=== PATIENT | male | born 1975 | race Two or more races ===

== ENCOUNTER 2018-10-19 17:45 | Emergency (ER) | payer OTHER ==
--- NOTE | 2018-10-19 18:30 | EKG REPORT ---
SEVERITY:- BORDERLINE ECG - SINUS RHYTHM BORDERLINE LEFT AXIS DEVIATION EARLY PRECORDIAL TRANSITION, RVH? : Confirmed by: Jon Dean MD 19-Oct-2018 18:29:30
[2018-10-19] MEDS ORDERED: ASPIRIN 81 MG TABLET, CHEWABLE PO ONE (19:56)
[2018-10-19] MEDS ORDERED: LIDOCAINE 5% (700 MG) TRANSDERMAL ADH..PATCH TP ONE (19:57)
--- NOTE | 2018-10-19 19:59 | ER Document Report ---
ED Medical Screen (RME) - General Chief Complaint: Chest Pain Stated Complaint: CHEST PAIN Time Seen by Provider: 10/19/18 19:52 TRAVEL OUTSIDE OF THE [place] IN LAST 30 DAYS: No - Related Data Allergies/Adverse Reactions: No Known Allergies Allergy (Verified 01/23/15 10:12) Past Medical History Renal/ Medical History: Denies: Hx Peritoneal Dialysis - Immunizations Hx Diphtheria, Pertussis, Tetanus Vaccination: Yes Physical Exam - Vital signs Vitals: Temp Pulse Resp BP Pulse Ox 98.5 F 85 18 145/93 H 100 10/19/18 17:53 10/19/18 17:53 10/19/18 17:53 10/19/18 17:53 10/19/18 17:53 Course - Re-evaluation Re-evalutation: 10/19/18 19:58 Here is a 43-year-old man who presents for pain along the left chest wall which she is noticed over the last several months but is worsened over the last 3 days. There is tenderness to palpation in the posterior left chest. We will initiate workup.I have seen and performed a rapid medical screening examination on this patient. This patient will require further evaluation and disposition determination by a secondary provider. - Vital Signs Vital signs: Temp Pulse Resp BP Pulse Ox 98.5 F 85 18 145/93 H 100 10/19/18 17:53 10/19/18 17:53 10/19/18 17:53 10/19/18 17:53 10/19/18 17:53
--- NOTE | 2018-10-19 20:25 | RADIOLOGY REPORT (SQ) ---
EXAM DESCRIPTION: CHEST 2 VIEWS COMPLETED DATE/TIME: 10/19/2018 8:16 pm REASON FOR STUDY: chest pain COMPARISON: None. EXAM PARAMETERS: NUMBER OF VIEWS: two views TECHNIQUE: Digital Frontal and Lateral radiographic views of the chest acquired. RADIATION DOSE: NA LIMITATIONS: none FINDINGS: LUNGS AND PLEURA: No opacities, masses or pneumothorax. No pleural effusion. MEDIASTINUM AND HILAR STRUCTURES: No masses or contour abnormalities. HEART AND VASCULAR STRUCTURES: Heart normal size. No evidence for failure. BONES: No acute findings. HARDWARE: None in the chest. OTHER: No other significant finding. IMPRESSION: NO ACUTE RADIOGRAPHIC FINDING IN THE CHEST. TECHNICAL DOCUMENTATION: JOB ID: [id number] [employer]- All Rights Reserved Reading location - IP/workstation name: [email or web address]
[2018-10-19 21:03] LABS: ABSOLUTE BASOPHILS # (AUTO) 0.1 10^3/uL (0.0-0.2); ABSOLUTE EOSINOPHILS # (AUTO) 0.1 10^3/uL (0.0-0.6); ABSOLUTE LYMPHOCYTES (AUTO) 2.7 10^3/uL (0.5-4.7); ABSOLUTE MONOCYTES (AUTO) 0.7 10^3/uL (0.1-1.4); ABSOLUTE NEUT (AUTO) 8.9 10^3/uL (1.7-8.2); BASOPHILS % (AUTO) 0.5 % (0-2); EOSINOPHILS % (AUTO) 1.1 % (0-6); HEMATOCRIT 43.5 % (37.9-51.0); HEMOGLOBIN 14.8 g/dL (13.5-17.0); LYMPHOCYTES % (AUTO) 21.7 % (13-45); MEAN CORPUSCULAR HEMOGLOBIN 29.8 pg (27.0-33.4); MEAN CORPUSCULAR HGB CONC 33.9 g/dL (32.0-36.0); MEAN CORPUSCULAR VOLUME 88 fl (80-97); MONOCYTES % (AUTO) 5.4 % (3-13); PLATELET COUNT 277 10^3/uL (150-450); RED BLOOD COUNT 4.96 10^6/uL (4.35-5.55); RED CELL DISTRIBUTION WIDTH 14.2 % (11.5-14.0); SEGMENTED NEUTROPHILS % (AUTO) 71.3 % (42-78); TOTAL CELLS COUNTED % (AUTO) 100 %; WHITE BLOOD COUNT 12.5 10^3/uL (4.0-10.5)
[2018-10-19 21:20] LABS: ALANINE AMINOTRANSFERASE 37 U/L (21-72); ALBUMIN 4.5 g/dL (3.5-5.0); ALKALINE PHOSPHATASE 89 U/L (38-126); ANION GAP 10 (5-19); ASPARTATE AMINO TRANSFERASE 40 U/L (17-59); BILIRUBIN,DIRECT 0.3 mg/dL (0.0-0.4); BILIRUBIN,TOTAL 0.8 mg/dL (0.2-1.3); BLOOD UREA NITROGEN 11 mg/dL (7-20); CALCIUM 9.8 mg/dL (8.4-10.2); CARBON DIOXIDE 31 mmol/L (22-30); CHLORIDE 101 mmol/L (98-107); CREATINE KINASE 162 U/L (55-170); GLUCOSE 108 mg/dL (75-110); POTASSIUM 3.7 mmol/L (3.6-5.0); SODIUM 142.3 mmol/L (137-145); TOTAL PROTEIN 8.5 g/dL (6.3-8.2)
[2018-10-19 21:32] LABS: CREATINE KINASE MB 0.67 ng/mL (<4.55)
[2018-10-19 21:36] LABS: TROPONIN I < 0.012 ng/mL
[2018-10-19] MEDS ORDERED: DEXAMETHASONE SOD PHOS INJ 10 MG/1 ML VIAL IV ONE (22:32)
[2018-10-19 22:39] VITALS: BP 146/89
--- NOTE | 2018-10-19 22:43 | ER Document Report ---
ED General - General Chief Complaint: Chest Pain Stated Complaint: CHEST PAIN Time Seen by Provider: 10/19/18 19:52 Notes: Patient is a 43-year-old male that comes to the emergency department for chief complaint of pain in his left chest that goes around to his left side over the mid to lower ribs, he states pain is been present for about 2 weeks but has been bothering him more for the past 2 days. Pain is worse with deep breaths and movement. He denies injury, shortness of breath, vomiting, dizziness, passing out, fever. He denies history of the same. He denies smoking, recreational drugs, drinks minimal alcohol. He denies abdominal pain or symptoms with eating. TRAVEL OUTSIDE OF THE [place] IN LAST 30 DAYS: No - Related Data Allergies/Adverse Reactions: No Known Allergies Allergy (Verified 01/23/15 10:12) Past Medical History - General Information source: Patient - Social History Smoking Status: Never Smoker Frequency of alcohol use: Occasional Drug Abuse: None Lives with: Family Family History: Reviewed & Not Pertinent Patient has suicidal ideation: No Patient has homicidal ideation: No - Medical History Medical History: Negative Renal/ Medical History: Denies: Hx Peritoneal Dialysis Surgical Hx: Negative - Immunizations Immunizations up to date: Yes Hx Diphtheria, Pertussis, Tetanus Vaccination: Yes Review of Systems - Review of Systems Constitutional: No symptoms reported EENT: No symptoms reported Cardiovascular: See HPI Respiratory: See HPI Gastrointestinal: No symptoms reported Genitourinary: No symptoms reported Male Genitourinary: No symptoms reported Musculoskeletal: See HPI Skin: No symptoms reported Hematologic/Lymphatic: No symptoms reported Neurological/Psychological: No symptoms reported Physical Exam - Vital signs Vitals: Temp Pulse Resp BP Pulse Ox 98.5 F 85 18 145/93 H 100 10/19/18 17:53 10/19/18 17:53 10/19/18 17:53 10/19/18 17:53 10/19/18 17:53 - Notes Notes: GENERAL: Alert, interacts well. No acute distress. HEAD: Normocephalic, atraumatic. EYES: Pupils equal, round, and reactive to light. Extraocular movements intact. ENT: Oral mucosa moist, tongue midline. Oropharynx unremarkable. Airway patent. Nares patent, no nasal septal hematoma, TM's intact. NECK: Full range of motion. Supple. Trachea midline. LUNGS: Clear to auscultation bilaterally, no wheezes, rales, or rhonchi. No respiratory distress. Tenderness over the left mid ribs mainly over towards the lateral and almost posterior aspect. No ecchymosis, erythema, crepitus, or other concerning findings noted. HEART: Regular rate and rhythm. No murmur ABDOMEN: Soft, non-tender. Non-distended. Bowel sounds present in all 4 quadrants. GENITOURINARY: Deferred EXTREMITIES: Moves all 4 extremities spontaneously. No edema, normal radial and dorsalis pedis pulses bilaterally. No cyanosis. BACK: no cervical, thoracic, lumbar midline tenderness. No saddle anesthesia, normal distal neurovascular exam. NEUROLOGICAL: Alert and oriented x3. Normal speech. [cranial nerves II through XII grossly intact]. PSYCH: Normal affect, normal mood. SKIN: Warm, dry, normal turgor. No rashes or lesions noted. Course - Re-evaluation Re-evalutation: EKG sinus rhythm with no T wave inversions were in consecutive leads. Borderline left axis deviation. Normal heart size on chest x-ray, unremarkable chest x-ray. CBC, CMP, troponin unremarkable despite patient symptoms going on for some time. He has point tenderness over the left ribs mainly over the side and almost towards the back. No CVA tenderness. Pain is worse with deep breaths and range of motion. Appears to be musculoskeletal. Patient is improved with the lidocaine patch. Provided with dexamethasone to the IV. Discussed treatment, workup, expectations, follow-up, and return precautions with patient in detail. Patient states satisfaction and agreement. Stable at time of discharge. - Vital Signs Vital signs: Temp Pulse Resp BP Pulse Ox 98.5 F 85 16 146/89 H 97 10/19/18 17:53 10/19/18 17:53 10/19/18 22:04 10/19/18 22:03 10/19/18 22:04 - Laboratory Result Diagrams: 10/19/18 20:12 10/19/18 20:12 Laboratory results interpreted by me: 10/19/18 10/19/18 20:12 20:12 WBC 12.5 H RDW 14.2 H Absolute Neutrophils 8.9 H Carbon Dioxide 31 H Total Protein 8.5 H Discharge - Discharge Clinical Impression: Chest wall pain, Side pain Condition: Stable Disposition: HOME, SELF-CARE Additional Instructions: Your workup today does not show any concerning abnormalities. Your symptoms and evaluation are most consistent with costochondritis (pain and inflammation of the chest wall). You have been treated for this, you can take Naprosyn anti- inflammatory, you can apply heat over the area of pain, this should eventually resolve with time. Follow-up with primary care. Return if you worsen including difficulty breathing, severe pain, fever 100.4 or greater, passing out, or any other concerning symptoms. Prescriptions: Naproxen 500 mg PO BID PRN #14 tablet PRN Reason: Forms: Return to Work
== END 2018-10-19 22:30 | disposition home or self-care (01) ==
LOC: ER 17:45
DX: R07.89 Other chest pain (principal)
CPT/HCPCS: 93005; 99285; 96374; 36415; 82553; 82550; 85025; 80053; 84484; 71046; 93010; J1100

== ENCOUNTER 2018-12-12 19:40 | Emergency (ER) | payer OTHER ==
[2018-12-12 19:48] VITALS: BP 152/102
[2018-12-12] MEDS ORDERED: PREDNISONE 20 MG TABLET PO ONE (20:58)
--- NOTE | 2018-12-12 21:50 | ER Document Report ---
HPI - HPI Patient complains to provider of: rash Time Seen by Provider: 12/12/18 20:11 Pain Level: Denies Context: Patient presents to the emergency department for systemic rash that started on his hands and wrists approximately 1 week ago that progressed all the way up his arms onto his torso and back 4 days ago. Patient states that the rash does itch. Patient denies fevers, chills. Patient states that he did recently change laundry soaps. Patient states that he has recently started hiking and biking in the outdoors. Patient denies any other symptoms. - CONSTITUTIONAL Constitutional: DENIES: Fever, Chills Past Medical History - Social History Smoking Status: Unknown if Ever Smoked Family History: Reviewed & Not Pertinent Patient has suicidal ideation: No Patient has homicidal ideation: No Renal/ Medical History: Denies: Hx Peritoneal Dialysis - Immunizations Immunizations up to date: Yes Hx Diphtheria, Pertussis, Tetanus Vaccination: Yes Vertical Provider Document - CONSTITUTIONAL Agree With Documented VS: Yes - INFECTION CONTROL TRAVEL OUTSIDE OF THE [place] IN LAST 30 DAYS: No - HEENT HEENT: Atraumatic, Normocephalic - NECK Neck: Normal Inspection - BACK Back: Normal Inspection - NEURO Level of Consciousness: Awake, Alert, Appropriate Motor/Sensory: No Motor Deficit - DERM Integumentary: Warm, Dry, Rash - Systemic macular rash on the torso, circumferential around the arms and hands. No weeping, erythema, or central russell aring noted. Course - Re-evaluation Re-evalutation: 12/12/18 21:53 Pleasant 43-year-old male presents with a rash. Rash is macular and plaque with no surrounding erythema, central clearing, not raised, no evidence of discharge coming from the rash. Unclear what the etiology is but patient did recently changed body wash/laundry soap and has started spending more time outdoors. Patient states the rash itches. Plan is to give him prednisone 40 mg 1 time now with a burst dose of prednisone 40 mg daily for 5 days and follow-up to dermatology. Patient is stable for discharge. - Vital Signs Vital signs: Temp Pulse Resp BP Pulse Ox 98.4 F 91 16 152/102 H 97 12/12/18 19:46 12/12/18 19:46 12/12/18 19:46 12/12/18 19:46 12/12/18 19:46 Discharge - Discharge Clinical Impression: Rash and nonspecific skin eruption Condition: Good Disposition: HOME, SELF-CARE Additional Instructions: You were seen in the emergency department this evening for a rash. It is unclear what the cause of it is and it could be related to your change in the body wash or potentially from something in the environment. Nonetheless, we are putting you on a short dose of steroids with the expectation that you will follow-up with a primary care doctor and/or highway painter. If the rash becomes more severe, you have difficulty breathing or your throat feels like it is closing up, or you have any type of symptoms of anaphylaxis which is a life- threatening condition please immediately return to the emergency department. Referrals: [facility] [Provider Group] - Follow up as needed KARYN SHAIKH DO [ACTIVE STAFF] - Follow up as needed
== END 2018-12-12 21:05 | disposition home or self-care (01) ==
LOC: ER 19:40
DX: R21 Rash and other nonspecific skin eruption (principal); L29.8 Other pruritus
CPT/HCPCS: 99282; J7512

== ENCOUNTER 2020-06-22 20:06 | Emergency (ER) | payer SELFPAY ==
[2020-06-22] MEDS ORDERED: DEXAMETHASONE SOD PHOSPHATE INJ 4 MG/1 ML VIAL IM ONE (20:54)
[2020-06-22] MEDS ORDERED: KETOROLAC TROMETHAMINE 60 MG/2 ML SDV IM ONE (20:54)
[2020-06-22] MEDS ORDERED: OXYCODONE HCL SR 10 MG TABLET PO ONE (20:54)
--- NOTE | 2020-06-22 21:52 | RADIOLOGY REPORT (SQ) ---
5 VIEWS OF LUMBAR SPINE HISTORY: Lower back pain. COMPARISON: None. FINDINGS: No acute compression fracture is seen. There is normal lumbar alignment. The disc spaces and facet joints are intact. The sacroiliac joints are preserved. No evidence of spondylolysis on the oblique views. IMPRESSION: No acute lumbar findings are seen.
--- NOTE | 2020-06-22 22:49 | ER Document Report ---
ED General Pain - General Chief Complaint: Low Back Pain Stated Complaint: BACK PAIN Time Seen by Provider: 06/22/20 20:44 Primary Care Provider: RADHA CASTAÑEDA MD [ACTIVE STAFF] - Follow up as needed Mode of Arrival: Wheelchair Information source: Patient, Relative Notes: Patient is a 44-year-old male comes emergency room complaint of low back pain. Patient states he started with some pain on Thursday little discomfort he went to a chiropractor on of [facility] and today he had some shooting pain in his lower back that is running down his left leg. Patient denies any known traumatic events. He has had no falls. Denies having any lifting or moving or sneezing or coughing. Patient denies any loss of urine or stool. States it is exceptionally hard to walk without the shooting pain down the left leg. He has history of back problems in the past but never has lasted this long. TRAVEL OUTSIDE OF THE [place] IN LAST 30 DAYS: No - Related Data Allergies/Adverse Reactions: No Known Allergies Allergy (Verified 01/23/15 10:12) Past Medical History - General Information source: Patient - Social History Smoking Status: Never Smoker Cigarette use (# per day): No Chew tobacco use (# tins/day): No Smoking Education Provided: No Frequency of alcohol use: None Drug Abuse: None Lives with: Family Family History: Reviewed & Not Pertinent Patient has homicidal ideation: No Renal/ Medical History: Denies: Hx Peritoneal Dialysis - Immunizations Immunizations up to date: Yes Hx Diphtheria, Pertussis, Tetanus Vaccination: Yes Review of Systems - Review of Systems Constitutional: No symptoms reported EENT: No symptoms reported Cardiovascular: No symptoms reported Respiratory: No symptoms reported Gastrointestinal: No symptoms reported Genitourinary: No symptoms reported Male Genitourinary: No symptoms reported Musculoskeletal: See HPI, Back pain Skin: No symptoms reported Hematologic/Lymphatic: No symptoms reported Neurological/Psychological: No symptoms reported -: Yes All other systems reviewed and negative Physical Exam - Vital signs Vitals: Temp Pulse Resp BP Pulse Ox 98.2 F 85 16 160/107 H 95 06/22/20 20:13 06/22/20 20:13 06/22/20 20:13 06/22/20 20:13 06/22/20 20:13 Interpretation: Hypertensive - Notes Notes: PHYSICAL EXAMINATION; patient is a well-nourished well-developed 44-year-old male who is in no apparent distress on examination of her he does appear very uncomfortable. NECK: Normal range of motion, supple without lymphadenopathy LUNGS: Breath sounds clear to auscultation bilaterally and equal. No wheezes rales or rhonchi. HEART: Regular rate and rhythm without murmurs ABDOMEN: Soft, nontender, nondistended abdomen. No guarding, no rebound. No masses appreciated. Musculoskeletal: Examination patient's area concern is his low back. Palpation of the area shows some mild tenderness around L4-L5. This also descends down into the left buttocks in the sciatic notch area. Patient has a positive straight leg raise on the left side. To about 25 degrees. Right side is normal. Patient displays good DTRs bilaterally. He also does place good sensation from the inner ankles to the groin as he does on the outer ankles to the hips therefore no apparent saddle paresthesia noted. When patient does stand and walk he walks heel-to-toe with no foot drop. No sign of cauda equina syndrome. Further investigation shows patient is a good vascular exam. Also noted patient has spasm paravertebrally around L4-L5. And appears to be some tightening in the gluteus muscle as well give me suspicion this may be also a piriformis type of presentation. NEUROLOGICAL: Normal speech, normal gait. Normal sensory, motor exams PSYCH: Normal mood, normal affect. SKIN: Warm, Dry, normal turgor, no rashes or lesions noted. Course - Re-evaluation Re-evalutation: 06/22/20 22:43 X-rays did not show any sign of acute problems. I am going give patient the name of the orthopedic on-call and contact his office tomorrow to see if they can accommodate him in follow-up. 06/22/20 23:17 Prior to giving patient any narcotic medication I did look him up on the [facility] aware. Patient has absolutely no history of narcotic abuse or use. Is why I feel that is important at this time to treat his discomfort and pain because he is barely able to move at this time. Neurologically though he is intact. - Vital Signs Vital signs: Temp Pulse Resp BP Pulse Ox 98.2 F 85 16 160/107 H 95 06/22/20 20:13 06/22/20 20:13 06/22/20 20:13 06/22/20 20:13 06/22/20 20:13 Discharge - Discharge Clinical Impression: Sciatica Qualifiers: Laterality: left Qualified Code(s): M54.32 - Sciatica, left side Condition: Stable Disposition: HOME, SELF-CARE Instructions: Ice Packs ([facility]), Low Back Pain ([facility]), Oral Narcotic Medication ([facility]), Pain Medication Injection ([facility]), Sciatica ([facility]), Warm Packs ([facility]) Additional Instructions: Home and rest. Use the beach towel for traction as we discussed lay on a hard surface rolled up 3 inches in the middle play set up underneath it with his feet up on a small stool or pillow and relax the back. Ice is also a good option prior to doing that. You can also try moist heat. I will give you the name of the orthopedist on-call tonight you contact their office tomorrow to see if they can accommodate you. As I have indicated to I do like chiropractor but I would not getting more adjustments until such time as you know exactly what is causing the problem. When [facility] and I will send the rest of the prescriptions over to the pharmacy of your choice. Should you have any loss of urine or stool or noticed that your foot is dragging you need to return to ER at once for reevaluation. Prescriptions: Oxycodone HCl/Acetaminophen [Percocet 7.5-325 mg Tablet] 1 each PO Q6 PRN #15 tablet PRN Reason: Prednisone 10 mg PO ASDIR PRN #21 tablet PRN Reason: Diazepam [Valium] 10 mg PO TIDP PRN #12 tablet PRN Reason: Forms: Elevated Blood Pressure Referrals: RADHA CASTAÑEDA MD [ACTIVE STAFF] - Follow up as needed
[2020-06-22] MEDS ORDERED: DIAZEPAM 5 MG TABLET PO ONE (23:24)
[2020-06-23 01:24] VITALS: BP 150/90
== END 2020-06-22 23:30 | disposition home or self-care (01) ==
LOC: ER 20:06
DX: M54.42 Lumbago with sciatica, left side (principal)
CPT/HCPCS: 99283; 96372; 72110; J1100; J1885